=== PATIENT | male | born 1970 | race American Indian/Alaskan Native ===

== ENCOUNTER 2019-03-16 20:57 | Emergency (ER) | payer OTHER ==
[2019-03-16 21:00] VITALS: BMI 30.1
[2019-03-16 22:16] VITALS: BP 168/107; PULSE 79; TEMP 98
--- NOTE | 2019-03-16 22:22 | PDOC ---
History of Present Illness - General Chief Complaint: Pain, Acute Stated Complaint: BLEEDING ON LEFT FOOT Time Seen by Provider: 03/16/19 21:40 History Source: Patient Exam Limitations: No Limitations Past History - Travel Traveled outside of the country in the last 30 days: No Close contact w/someone who was outside of country & ill: No - Past Medical History Allergies/Adverse Reactions: Allergies Allergy/AdvReac Type Severity Reaction Status Date / Time No Known Allergies Allergy Verified 03/16/19 21:01 COPD: No HTN: Yes - Suicide/Smoking/Psychosocial Hx Smoking History: Never smoked Review of Systems - Review of Systems Able to Perform ROS?: Yes Comments:: 03/17/19 00:20 CONSTITUTIONAL: Absent: fever, chills, diaphoresis, generalized weakness, malaise, loss of appetite HEENT: Absent: rhinorrhea, nasal congestion, throat pain, throat swelling, difficulty swallowing, mouth swelling, ear pain, eye pain, visual Changes CARDIOVASCULAR: Absent: chest pain, loss of consciousness, palpitations, irregular heart rate, peripheral edema RESPIRATORY: Absent: cough, shortness of breath, dyspnea with exertion, orthopnea, wheezing, stridor, hemoptysis GASTROINTESTINAL: Absent: abdominal pain, abdominal distension, nausea, vomiting, diarrhea, constipation, melena, hematochezia GENITOURINARY: Absent: dysuria, frequency, urgency, hesitancy, hematuria, flank pain, genital pain MUSCULOSKELETAL: Absent: myalgia, arthralgia, joint swelling SKIN: Absent: rash, itching, pallor HEMATOLOGIC/IMMUNOLOGIC: Absent: easy bleeding, easy bruising, lymphadenopathy, frequent infections ENDOCRINE: Absent: unexplained weight gain, unexplained weight loss, heat intolerance, cold intolerance NEUROLOGIC: Absent: headache, focal weakness or paresthesias, dizziness, unsteady gait, seizure, mental status changes, bladder or bowel incontinence PSYCHIATRIC: Absent: anxiety, depression, suicidal or homicidal ideation, hallucinations. Is the patient limited [place] proficient: No *Physical Exam - Vital Signs Last Vital Signs Temp Pulse Resp BP Pulse Ox 98.0 F 79 20 168/107 H 100 03/16/19 22:09 03/16/19 22:09 03/16/19 22:09 03/16/19 22:09 03/16/19 20:58 *DC/Admit/Observation/Transfer Diagnosis at time of Disposition: Hemorrhage of varicose veins of left lower extremity - Discharge Dispostion Disposition: HOME Condition at time of disposition: Stable Decision to Admit order: No - Referrals Referrals: Osman England [Primary Care Provider] - Michel Ceballos DO [Staff Physician] - - Patient Instructions Printed Discharge Instructions: DI for Varicose Veins Additional Instructions: You were evaluated for your varicose vein bleeding today A pressure dressing and clot forming medication was placed on the site Please keep the dressing on the area for 24 hours. Do not get it wet Please follow up with the vascular surgeon this week. A referral for Dr. Ceballos has been provided Return to the ER for weakness, lightheadedness, uncontrolled bleeding or if you have any new or worsening symptoms - Post Discharge Activity Forms/Work/School Notes: Back to Work
[2019-03-16] MEDS ORDERED: THROMBIN (RECOMBINANT) 5,000 UNIT VIAL TP ONE (22:24)
== END 2019-03-17 00:43 | disposition home or self-care (01) ==
LOC: JER 20:57
DX: I83.892 Varicose veins of left lower extremity with other complications (principal); M25.075 Hemarthrosis, left foot; I10 Essential (primary) hypertension
CPT/HCPCS: 99281-25